=== PATIENT | female | born 1970 | race Caucasian/White ===

== ENCOUNTER → 2024-01-31 18:01 | Outpatient (REF) | payer BC, SELFPAY | LOC: MRI 3T 18:01 | PROVIDERS: ATTENDING PHYSICIAN Advanced Practice Midwife; FAMILY PHYSICIAN Nurse Practitioner Gerontology | DX: R92.8 Other abnormal and inconclusive findings on diagnostic imaging of breast (principal) | CPT/HCPCS: 77049; A9585 ==

== ENCOUNTER → 2024-02-07 14:42 | Outpatient (REF) | payer BC, SELFPAY | LOC: WDC 14:42 | PROVIDERS: ATTENDING PHYSICIAN Advanced Practice Midwife | DX: R92.8 Other abnormal and inconclusive findings on diagnostic imaging of breast (principal) | CPT/HCPCS: 76642 ==